=== PATIENT | female | born 1960 | race Hispanic/Latino ===

== ENCOUNTER 2017-08-09 00:33 | Emergency (ER) | payer BC ==
[2017-08-09 00:34] VITALS: BMI 28.3
[2017-08-09 01:02] VITALS: BP 126/81; PULSE 93; RESP 17; TEMP 98.3; O2SAT 98
[2017-08-09] MEDS ORDERED: TraMADol/Apap 37.5/325 mg Tab PO STA (01:13)
--- NOTE | 2017-08-09 01:27 | ED PDOC ---
Arrival/HPI - General Chief Complaint: Medical Clearance Time Seen by Provider: 08/09/17 00:46 Historian: Patient - History of Present Illness Narrative History of Present Illness (Text): 08/09/17 01:21 Codie Berman is a 56 year old female, whose past medical history includes mitral valve prolapse, Courtney throiditis, and fibromyalgia, presents to the emergency department complaining of neck pain for past few hours. States pain presented after she "jerked" her neck at [employer] while quickly turning her neck. States that pain radiates to the back of the head and to the lower back. Denies any fever, chills, dizziness, chest pain, shortness of breath, nausea, vomiting, diarrhea, or any other complaints at this time. Time/Duration: 4-6 hours Symptom Onset: Sudden Symptom Course: Unchanged Severity Level: Mild Activities at Onset: Light Past Medical History - Provider Review Nursing Documentation Reviewed: Yes - Infectious Disease Hx of Infectious Diseases: None - Tetanus Immunization Tetanus Immunization: Unknown - Reproductive Menopause: Yes - Cardiac Hx Pacemaker: No - Neurological Hx Paralysis: No Other/Comment: Neck Injury - Endocrine/Metabolic Hx Endocrine Disorders: Yes (Hashimotos Thyroiditis) Hx Hypothyroidism: Yes - Hematological/Oncological Hx Blood Transfusions: No Hx Blood Transfusion Reaction: No - Musculoskeletal/Rheumatological Hx Musculoskeletal Disorders: No - Psychiatric Hx Depression: No Hx Emotional Abuse: No Hx Physical Abuse: No Hx Substance Use: No - Past Surgical History Past Surgical History: No Previous - Surgical History Hx Section: Yes - Anesthesia Hx Anesthesia Reactions: Yes (WOKE UP DURING ENDOSCOPY) - Suicidal Assessment Feels Threatened In Home Enviroment: No Family/Social History Family/Social History: No Known Family HX Smoking Status: Never Smoked Hx Alcohol Use: Yes (SOCIAL) Frequency of alcohol use: Socially Hx Substance Use: No Hx Substance Use Treatment: No Allergies/Home Meds Allergies/Adverse Reactions: Allergies crab Allergy (Verified 08/31/16 18:09) ANAPHYLAXIS levothyroxine sodium [From Levoxyl] Allergy (Verified 09/01/16 02:35) ANAPHYLAXIS shrimp Allergy (Verified 08/31/16 18:09) ANAPHYLAXIS Sulfa (Sulfonamide Antibiotics) Allergy (Verified 09/01/16 02:35) ANAPHYLAXIS Iodine and Iodide Containing Produc Adverse Reaction (Verified 08/31/16 18:09) ANAPHYLAXIS IVP DYE Allergy (Uncoded 12/16/16 11:30) RASH Home Medications: Home Meds Medication Instructions Recorded Confirmed Aspirin [Ecotrin] 81 mg PO DAILY 07/12/16 08/09/17 Ascorbic Acid [Vitamin C] 1,000 mg PO DAILY 12/16/16 08/09/17 Ibuprofen [Motrin Tab] 800 mg PO PRN PRN 12/16/16 08/09/17 Inositol 500 mg PO DAILY 12/16/16 08/09/17 Lactobacillus Combination No.8 1 each PO DAILY 12/16/16 08/09/17 [Adult Probiotic] Latanoprost 0.005% Opht [Xalatan 1 drop OU HS 12/16/16 08/09/17 Opht] [id number] Ethyl Esters [OMEGA 3] 500 mg PO DAILY 12/16/16 08/09/17 Review of Systems - Physician Review All systems were reviewed & negative as marked: Yes - Review of Systems Constitutional: Normal. absent: Fatigue, Fevers Respiratory: Normal. absent: SOB, Cough, Sputum Cardiovascular: Normal. absent: Chest Pain, Palpitations Gastrointestinal: Normal. absent: Abdominal Pain, Diarrhea, Nausea, Vomiting Musculoskeletal: Back Pain, Neck Pain (neck pain radiating to the back ) Neurological: Headache Physical Exam Vital Signs Reviewed: Yes Vital Signs Temp Pulse Resp BP Pulse Ox 08/09/17 00:56 98.3 F 93 H 17 126/81 98 Temperature: Afebrile Blood Pressure: Normal Pulse: Regular Respiratory Rate: Normal Appearance: Positive for: Well-Appearing, Non-Toxic, Comfortable Pain Distress: None Mental Status: Positive for: Alert and Oriented X 3 - Systems Exam Head: Present: Atraumatic, Normocephalic Pupils: Present: PERRL Conjunctiva: Present: Normal Mouth: Present: Moist Mucous Membranes Neck: Present: Normal Range of Motion, Other (MILD PARASPINAL SPASM). No: MIDLINE TENDERNESS, Paraspinal Tenderness Respiratory/Chest: Present: Clear to Auscultation, Good Air Exchange. No: Respiratory Distress, Accessory Muscle Use Cardiovascular: Present: Regular Rate and Rhythm, Normal S1, S2. No: Murmurs Abdomen: Present: Normal Bowel Sounds. No: Tenderness, Distention, Peritoneal Signs Back: Present: Normal Inspection Upper Extremity: Present: Normal Inspection. No: Cyanosis, Edema Lower Extremity: Present: Normal Inspection. No: Edema Neurological: Present: GCS=15, CN II-XII Intact, Speech Normal, Motor Func Grossly Intact, Normal Sensory Function Skin: Present: Warm, Dry, Normal Color. No: Rashes Psychiatric: Present: Alert, Oriented x 3, Normal Insight, Normal Concentration Medical Decision Making ED Course and Treatment: 08/09/17 01:29 Impression: A 56 year old female who presents to the emergency department complaining of neck pain for past few hours. Plan: -- Ultracet -- Valium -- X-Ray cervical spine -- Reassess and disposition Progress Notes: 08/09/17 03:07 Cervical Spine X-ray shows no acute process. States symptoms have improved post treatment. Patient is stable for discharge. Advised to follow up with PMD within few days and present to the emergency department for new/worsening symptoms. - Lab Interpretations I have reviewed the lab results: Yes - RAD Interpretation Radiology Orders: 08/09/17 01:11 CERVICAL SPINE >18YR W/OBLIQUE [RAD] Stat - Medication Orders Current Medication Orders: Discontinued Medications Diazepam (Valium) 5 mg PO ONCE ONE Stop: 08/09/17 01:14 Last Admin: 08/09/17 01:31 Dose: 5 mg Tramadol/Acetaminophen (Ultracet 37.5/325 Mg) 1 tab PO ONCE STA Stop: 08/09/17 01:14 Last Admin: 08/09/17 01:31 Dose: 1 tab - Scribe Statement The provider has reviewed the documentation as recorded by the Scribe Mayra Ray Provider Attestation: Mayra Ray Provider Scribe Attestation: All medical record entries made by the Scribe were at my direction and personally dictated by me. I have reviewed the chart and agree that the record accurately reflects my personal performance of the history, physical exam, medical decision making, and the department course for this patient. I have also personally directed, reviewed, and agree with the discharge instructions and disposition. Disposition/Present on Arrival - Present on Arrival Any Indicators Present on Arrival: No History of DVT/PE: No History of Uncontrolled Diabetes: No Urinary Catheter: No History of Decub. Ulcer: No History Surgical Site Infection Following: None - Disposition Have Diagnosis and Disposition been Completed?: Yes Diagnosis: Cervical strain, Neck muscle spasm Disposition: HOME/ ROUTINE Disposition Time: 02:58 Patient Plan: Discharge Condition: GOOD Discharge Instructions (ExitCare): Cervical Strain (DC), Muscle Spasm (ED) Additional Instructions: Rest/no strenuous activity/take meds as prescribed/follow up with your doctor this week Prescriptions: oxyCODONE/Acetaminophen [Percocet 5/325 mg Tab] 1 ea PO Q6 PRN #12 tab PRN Reason: Pain, Moderate (4-7) Diazepam [Valium] 2 mg PO TID PRN #12 tablet PRN Reason: Muscle Spasm Referrals: Ignacio Alanis MD [Primary Care Provider] - Follow up with primary Forms: [employer] (Belizean)
--- NOTE | 2017-08-09 08:36 | RAD ---
PROCEDURE: Cervical Spine Radiographs. HISTORY: Pain. COMPARISON: None. FINDINGS: BONES: Alignment maintained. No fracture. Dens Intact. DISC SPACES: There is disc degeneration at C5-6 SOFT TISSUES: Normal. No prevertebral soft tissue swelling. OTHER FINDINGS: None. IMPRESSION: Disc degeneration at C5-6. No acute findings
== END 2017-08-09 03:15 | disposition home or self-care (01) ==
LOC: ED 00:33
DX: S16.1XXA Strain of muscle, fascia and tendon at neck level, initial encounter (principal); X50.0XXA Overexertion from strenuous movement or load, initial encounter; Y93.89 Activity, other specified; Y92.512 Supermarket, store or market as the place of occurrence of the external cause

== ENCOUNTER 2018-02-08 16:22 | Emergency (ER) | payer BC ==
[2018-02-08 16:29] VITALS: BMI 23.0
[2018-02-08 16:39] VITALS: BP 135/87; PULSE 79; RESP 18; TEMP 97.7; O2SAT 99
--- NOTE | 2018-02-08 16:59 | ED PDOC ---
Arrival/HPI - General Chief Complaint: Finger,Hand,&Wrist Time Seen by Provider: 02/08/18 16:56 Historian: Patient - History of Present Illness Narrative History of Present Illness (Text): 02/08/18 16:57 This 57 yo female presents to this ED c/o left hand pain x 2 days. Patient stated a cantaloupe fell on her hand a local [employer]. Denies other complains. Time/Duration: Other (2 days) Quality: Aching Context: Other (supermarket) Past Medical History - Provider Review Nursing Documentation Reviewed: Yes - Infectious Disease Hx of Infectious Diseases: None - Tetanus Immunization Tetanus Immunization: Unknown - Cardiac Hx Pacemaker: No - Neurological Hx Paralysis: No Other/Comment: Neck Injury - Endocrine/Metabolic Hx Endocrine Disorders: Yes (Hashimotos Thyroiditis) Hx Hypothyroidism: Yes - Hematological/Oncological Hx Blood Transfusions: No Hx Blood Transfusion Reaction: No - Musculoskeletal/Rheumatological Hx Musculoskeletal Disorders: No - Psychiatric Hx Depression: No Hx Emotional Abuse: No Hx Physical Abuse: No Hx Substance Use: No - Past Surgical History Past Surgical History: No Previous - Surgical History Hx Section: Yes - Anesthesia Hx Anesthesia Reactions: Yes (WOKE UP DURING ENDOSCOPY) - Suicidal Assessment Feels Threatened In Home Enviroment: No Family/Social History - Physician Review Nursing Documentation Reviewed: Yes Family/Social History: Other (noncontributory) Smoking Status: Never Smoked Hx Alcohol Use: Yes (SOCIAL) Frequency of alcohol use: Socially Hx Substance Use: No Hx Substance Use Treatment: No Allergies/Home Meds Allergies/Adverse Reactions: Allergies crab Allergy (Verified 08/31/16 18:09) ANAPHYLAXIS levothyroxine sodium [From Levoxyl] Allergy (Verified 09/01/16 02:35) ANAPHYLAXIS shrimp Allergy (Verified 08/31/16 18:09) ANAPHYLAXIS Sulfa (Sulfonamide Antibiotics) Allergy (Verified 09/01/16 02:35) ANAPHYLAXIS Iodine and Iodide Containing Produc Adverse Reaction (Verified 08/31/16 18:09) ANAPHYLAXIS IVP DYE Allergy (Uncoded 12/16/16 11:30) RASH Home Medications: Home Meds Medication Instructions Recorded Confirmed Aspirin [Ecotrin] 81 mg PO DAILY 07/12/16 02/08/18 Ibuprofen [Motrin Tab] 800 mg PO PRN PRN 12/16/16 02/08/18 Review of Systems - Review of Systems Constitutional: Normal. absent: Fatigue, Weight Change, Fevers Eyes: Normal ENT: Normal Respiratory: Normal Cardiovascular: Normal Gastrointestinal: Normal Genitourinary Female: Normal Musculoskeletal: Other (left hand pain) Skin: Normal Neurological: Normal Endocrine: Normal Hemo/Lymphatic: Normal Psychiatric: Normal Physical Exam Vital Signs Temp Pulse Resp BP Pulse Ox 02/08/18 16:34 97.7 F 79 18 135/87 99 Temperature: Afebrile Blood Pressure: Normal Pulse: Regular Respiratory Rate: Normal Appearance: Positive for: Well-Appearing, Non-Toxic, Comfortable Pain Distress: None Mental Status: Positive for: Alert and Oriented X 3 - Systems Exam Head: Present: Atraumatic, Normocephalic Mouth: Present: Moist Mucous Membranes Neck: Present: Normal Range of Motion Upper Extremity: Present: Normal Inspection, Normal ROM, NORMAL PULSES, Tenderness (mild tenderness at left proximal 5th finger, and distal left 5th metacarpal area. No erythema, ecchymosis, swelling or deformity.), Neurovascularly Intact, Capillary Refill < 2s. No: Cyanosis, Edema, Swelling, Erythema, Temperature Abnormalties, Deformity Lower Extremity: Present: Normal Inspection, Normal ROM Neurological: Present: GCS=15, CN II-XII Intact, Speech Normal Skin: Present: Warm, Dry, Normal Color. No: Rashes Psychiatric: Present: Alert, Oriented x 3, Normal Insight, Normal Concentration Medical Decision Making ED Course and Treatment: 02/08/18 18:37 Re-evaluation. Patient feels better. Discussed results and plan with patient who expresses understanding. All questions answered and there is agreement with the plan to discharge home with instructions. Patient stable for discharge. Return if symptoms persist or worsen. Re-evaluation Time: 18:37 Reassessment Condition: Re-examined, Improved - RAD Interpretation Narrative RAD Interpretations (Text): 02/08/18 18:37 Hand x-rays: No Fx Radiology Orders: 02/08/18 17:00 HAND LEFT 3 VIEWS ROUTINE [RAD] Stat - Medication Orders Current Medication Orders: Discontinued Medications Ibuprofen (Motrin Tab) 600 mg PO STAT STA Stop: 02/08/18 17:01 Last Admin: 02/08/18 17:25 Dose: 600 mg MAR Pain/Vitals Document 02/08/18 17:25 EQ (Rec: 02/08/18 17:25 EQ [id number]) Pain Reassessment Is This A Pain ReAssessment? No Sleep Is patient sleeping during reassessment? No Presence of Pain Presence of Pain Yes - Procedure PROCEDURE NOTE (Text): 02/08/18 18:38 Jamar bandage and sling were recommended. Patient is aware about the risk of severe head injury from falling while wearing arm sling, or driving while wearing sling. Disposition/Present on Arrival - Present on Arrival Any Indicators Present on Arrival: No History of DVT/PE: No History of Uncontrolled Diabetes: No Urinary Catheter: No History of Decub. Ulcer: No History Surgical Site Infection Following: None - Disposition Have Diagnosis and Disposition been Completed?: Yes Diagnosis: Hand pain, left Disposition: HOME/ ROUTINE Disposition Time: 18:39 Patient Plan: Discharge Condition: IMPROVED Discharge Instructions (ExitCare): Hand Pain (DC) Additional Instructions: Call private doctor for follow up visit in 1-2 days. Take medication as instructed. Keep and elevated, ice, rest, jamar bandage, sling for at least 5 days. Return to emergency if symptoms worsen. Prescriptions: Famotidine [Pepcid] 40 mg PO DAILY #10 tablet Ibuprofen [Motrin] 600 mg PO Q8 PRN #20 tab PRN Reason: Pain, Severe (8-10) Referrals: Ignacio Alanis MD [Primary Care Provider] - Follow up with primary Forms: [facility] (Kiswahili), WORK NOTE
--- NOTE | 2018-02-09 08:33 | RAD ---
PROCEDURE: Left Hand Radiographs. HISTORY: pain COMPARISON: None. FINDINGS: BONES: Normal. No fracture. JOINTS: Normal. No osteoarthritic changes. SOFT TISSUES: Normal. OTHER FINDINGS: None. IMPRESSION: Normal left hand radiographs.
== END 2018-02-08 19:20 | disposition home or self-care (01) ==
LOC: ED 16:22
DX: M79.642 Pain in left hand (principal)

== ENCOUNTER 2018-03-26 02:57 | Emergency (ER) | payer BC ==
[2018-03-26 03:24] VITALS: BMI 23.6
[2018-03-26 03:35] VITALS: RESP 17; O2SAT 98
--- NOTE | 2018-03-26 03:40 | ED PDOC ---
Arrival/HPI - General Chief Complaint: Abdominal Pain Time Seen by Provider: 03/26/18 03:21 Historian: Patient - History of Present Illness Narrative History of Present Illness (Text): 03/26/18 03:39 57 year old, with past medical history of mitral valve prolapse, Courtney throiditis, and fibromyalgia, presents to the Emergency department complaining generalized abdominal discomfort since prior to arrival. Patient informs worsening pain bringing him to the Emergency department for evaluation. Patient informs mild nausea but denies any vomiting. Patient denies any fever, chills, diarrhea, changes in appetite, hematochezia, urinary output changes, chest pain , shortness of breath or any other complaints. Time/Duration: Prior to Arrival Symptom Onset: Gradual Symptom Course: Unchanged Quality: Aching Activities at Onset: Light Context: Home Past Medical History - Provider Review Nursing Documentation Reviewed: Yes - Infectious Disease Hx of Infectious Diseases: None - Tetanus Immunization Tetanus Immunization: Unknown - Cardiac Hx Pacemaker: No - Neurological Hx Paralysis: No Other/Comment: Neck Injury - Endocrine/Metabolic Hx Endocrine Disorders: Yes (Hashimotos Thyroiditis) Hx Hypothyroidism: Yes - Hematological/Oncological Hx Blood Transfusions: No Hx Blood Transfusion Reaction: No - Musculoskeletal/Rheumatological Hx Musculoskeletal Disorders: No - Psychiatric Hx Depression: No Hx Emotional Abuse: No Hx Physical Abuse: No Hx Substance Use: No - Past Surgical History Past Surgical History: No Previous - Surgical History Hx Section: Yes - Anesthesia Hx Anesthesia Reactions: Yes (WOKE UP DURING ENDOSCOPY) - Suicidal Assessment Feels Threatened In Home Enviroment: No Family/Social History - Physician Review Nursing Documentation Reviewed: Yes Family/Social History: No Known Family HX Smoking Status: Never Smoked Hx Alcohol Use: Yes (SOCIAL) Hx Substance Use: No Hx Substance Use Treatment: No Allergies/Home Meds Allergies/Adverse Reactions: Allergies crab Allergy (Verified 03/26/18 03:24) ANAPHYLAXIS levothyroxine sodium [From Levoxyl] Allergy (Verified 03/26/18 03:24) ANAPHYLAXIS shrimp Allergy (Verified 03/26/18 03:24) ANAPHYLAXIS Sulfa (Sulfonamide Antibiotics) Allergy (Verified 03/26/18 03:24) ANAPHYLAXIS Iodine and Iodide Containing Produc Adverse Reaction (Verified 03/26/18 03:24) ANAPHYLAXIS IVP DYE Allergy (Uncoded 03/26/18 03:24) RASH Home Medications: Home Meds Medication Instructions Recorded Confirmed Aspirin [Ecotrin] 81 mg PO DAILY 07/12/16 03/26/18 Ibuprofen [Motrin Tab] 800 mg PO PRN PRN 12/16/16 03/26/18 Review of Systems - Physician Review All systems were reviewed & negative as marked: Yes - Review of Systems Constitutional: Normal. absent: Fevers Eyes: Normal ENT: Normal Respiratory: Normal. absent: SOB Cardiovascular: Normal. absent: Chest Pain Gastrointestinal: Abdominal Pain, Nausea. absent: Diarrhea, Vomiting, Appetite Changes, Hematochezia Genitourinary Female: Normal. absent: Urine Output Changes Musculoskeletal: Normal Skin: Normal Neurological: Normal Endocrine: Normal Hemo/Lymphatic: Normal Psychiatric: Normal Physical Exam Vital Signs Reviewed: Yes Vital Signs Temp Pulse Resp BP Pulse Ox 03/26/18 06:36 98.2 F 78 17 128/72 98 03/26/18 06:05 78 17 128/72 98 03/26/18 03:34 97.3 F L 71 17 136/83 98 Temperature: Afebrile Blood Pressure: Normal Pulse: Regular Respiratory Rate: Normal Appearance: Positive for: Well-Appearing, Non-Toxic, Comfortable Pain Distress: None Mental Status: Positive for: Alert and Oriented X 3 - Systems Exam Head: Present: Atraumatic, Normocephalic Pupils: Present: PERRL Extroacular Muscles: Present: EOMI Conjunctiva: Present: Normal Respiratory/Chest: Present: Clear to Auscultation, Good Air Exchange. No: Respiratory Distress, Accessory Muscle Use Cardiovascular: Present: Regular Rate and Rhythm, Normal S1, S2. No: Murmurs Abdomen: Present: Normal Bowel Sounds. No: Tenderness, Distention, Peritoneal Signs, Rebound, Guarding, Mass/Organomegaly Upper Extremity: Present: Normal Inspection. No: Cyanosis, Edema Lower Extremity: Present: Normal Inspection. No: Edema Neurological: Present: GCS=15, CN II-XII Intact, Speech Normal Skin: Present: Warm, Dry, Normal Color. No: Rashes Psychiatric: Present: Alert, Oriented x 3, Normal Insight, Normal Concentration Medical Decision Making ED Course and Treatment: 03/26/18 03:50 Impression: 57 year old female presents to the Emergency department for abdominal pain. Plan: -- EKG -- Labs -- IV Fluids -- zofran -- Urinalysis -- Reassess and disposition Progress Notes: 03/26/18 04:11 EKG:Ordered, reviewed, and independently interpreted the EKG. Rate : 64 BPM Rhythm : NSR Interpretation : No ST-segment elevations or depressions, no T-wave inversions, normal intervals. - Lab Interpretations Lab Results: 03/26/18 04:08 03/26/18 04:08 Lab Results 03/26/18 04:08: Sodium 142, Potassium 3.9, Chloride 106, Carbon Dioxide 23, Anion Gap 17, BUN 19, Creatinine 0.6 L, Est GFR ( Amer) > 60, Est GFR ( Non-Af Amer) > 60, Random Glucose 75, Calcium 9.6, Total Bilirubin 0.4, AST 30, ALT 27, Alkaline Phosphatase 71, Lactate Dehydrogenase 594, Total Creatine Kinase 141, Troponin I < 0.01, Total Protein 7.8, Albumin 4.5, Globulin 3.4, Albumin/Globulin Ratio 1.3, Amylase 132 H, Lipase 119 03/26/18 04:08: Urine Color Yellow, Urine Appearance Clear, Urine pH 6.0, Ur Specific [place] 1.025, Urine Protein Negative, Urine Glucose (UA) Negative, Urine Ketones Negative, Urine Blood Small H, Urine Nitrate Negative, Urine Bilirubin Negative, Urine Urobilinogen 0.2, Ur Leukocyte Esterase Negative, Urine RBC 10 - 15, Urine WBC 5 - 10, Ur Epithelial Cells 3 - 4 03/26/18 04:08: PT 10.9, INR 0.95, APTT 29.5 03/26/18 04:08: WBC 7.8 D, RBC 4.27, Hgb 13.4, Hct 38.6, MCV 90.4, MCH 31.4, MCHC 34.7, RDW 12.6, Plt Count 253, MPV 10.0, Gran % 44.0 L, Lymph % (Auto) 46.2 H, [place] % (Auto) 6.1 H, Eos % (Auto) 3.6, Baso % (Auto) 0.1, Gran # 3.45, Lymph # (Auto) 3.6 H, [place] # (Auto) 0.5, Eos # (Auto) 0.3, Baso # (Auto) 0.01 - RAD Interpretation Radiology Orders: 03/26/18 04:45 ABD & PELVIS W/O PO OR IV CONT [CT] Stat - EKG Interpretation Interpreted by ED Physician: Yes Type: 12 lead EKG - Medication Orders Current Medication Orders: Discontinued Medications Cephalexin Monohydrate (Keflex) 500 mg PO STAT STA PRN Reason: Protocol Stop: 03/26/18 06:26 Last Admin: 03/26/18 06:38 Dose: 500 mg Sodium Chloride (Sodium Chloride 0.9%) 1,000 mls @ 100 mls/hr IV .Q10H STA Stop: 03/26/18 13:42 Last Admin: 03/26/18 04:26 Dose: 100 mls/hr eMAR Start Stop Document 03/26/18 04:26 IT (Rec: 03/26/18 04:26 IT [id number]) Intravenous Solution Start Date 03/26/18 Start Time 04: End Date 03/26/18 Ondansetron HCl (Zofran Inj) 4 mg IVP STAT STA Stop: 03/26/18 03:44 Last Admin: 03/26/18 04:25 Dose: 4 mg IVP Administration Document 03/26/18 04:25 IT (Rec: 03/26/18 04:25 IT [id number]) Charges for Administration # of IVP Administrations 1 - Scribe Statement The provider has reviewed the documentation as recorded by the Scribe Skye Henderson. All medical record entries made by the Scribe were at my direction and personally dictated by me. I have reviewed the chart and agree that the record accurately reflects my personal performance of the history, physical exam, medical decision making, and the department course for this patient. I have also personally directed, reviewed, and agree with the discharge instructions and disposition. Disposition/Present on Arrival - Present on Arrival Any Indicators Present on Arrival: No History of DVT/PE: No History of Uncontrolled Diabetes: No Urinary Catheter: No History of Decub. Ulcer: No History Surgical Site Infection Following: None - Disposition Have Diagnosis and Disposition been Completed?: Yes Diagnosis: Urinary tract infection, Abdominal pain Disposition: HOME/ ROUTINE Disposition Time: 06:25 Condition: GOOD Discharge Instructions (ExitCare): Urinary Tract Infection, Adult (DC), Acute Abdomen (Belly Pain), Adult (DC) Prescriptions: Cephalexin [Keflex] 500 mg PO BID #14 capsule Referrals: PCP,NO [Primary Care Provider] - Follow up with primary Forms: [employer] (Welsh)
[2018-03-26] MEDS ORDERED: Sodium Chloride 0.9% 1,000 ML IV STA (03:43)
[2018-03-26 04:40] LABS: BASO # 0.01 K/mm3 (0.0-2.0); BASO % 0.1 % (0.0-3.0); EOS # 0.3 (0.0-0.7); EOS % 3.6 % (1.5-5.0); GRAN # 3.45 (1.4-6.5); HEMOGLOBIN 13.4 g/dL (12.0-16.0); LYMPH # 3.6 (1.2-3.4); LYMPH % 46.2 % (22.0-35.0); MEAN CELL VOLUME 90.4 fl (80.0-105.0); MEAN CORPUSCULAR HEMOGLOBIN 31.4 pg (25.0-35.0); MEAN CORPUSCULAR HGB CONC 34.7 g/dl (31.0-37.0); MONO # 0.5 (0.1-0.6); MONO % 6.1 % (1.0-6.0); RBC 4.27 10^6/uL (3.5-6.1); RED CELL DISTRIBUTION WIDTH 12.6 % (11.5-14.5); URINE BILIRUBIN NEGATIVE (NEGATIVE); URINE BLOOD SMALL (NEGATIVE); URINE GLUCOSE (UA) NEGATIVE (NEGATIVE); URINE LEUKOCYTE ESTERASE NEGATIVE Leu/uL (NEGATIVE); URINE PROTEIN NEGATIVE mg/dL (<30 mg/dL); URINE UROBILINOGEN 0.2 E.U./dL (<1 E.U./dL); WHITE BLOOD COUNT 7.8 10^3/ul (4.5-11.0)
[2018-03-26 04:44] LABS: URINE APPEARANCE CLEAR (CLEAR); URINE COLOR YELLOW (YELLOW)
[2018-03-26 04:46] LABS: ALB/GLOB RATIO 1.3 (1.1-1.8); ALBUMIN 4.5 g/dL (3.0-4.8); ALT/SGPT 27 U/L (7-56); AMYLASE 132 U/L (35-125); AST/SGOT 30 U/L (14-36); BLOOD UREA NITROGEN 19 mg/dL (7-21); CALCIUM 9.6 mg/dL (8.4-10.5); GFR AFRICAN-AMERICAN > 60; GFR NON-AFRICAN AMERICAN > 60; INR 0.95 (0.93-1.08); LIPASE 119 U/L (23-300); PARTIAL THROMBOPLASTIN TIME 29.5 Seconds (25.1-36.5); PROTHROMBIN TIME 10.9 SECONDS (9.4-12.5)
[2018-03-26 04:57] LABS: TROPONIN I < 0.01 ng/mL
[2018-03-26 06:05] VITALS: BP 128/72; PULSE 78
--- NOTE | 2018-03-26 06:10 | CT ---
EXAM: CT Abdomen and Pelvis Without Intravenous Contrast CLINICAL HISTORY: 57 years old, female; Pain; Abdominal pain; Flank; Left; Prior surgery; Surgery type: ; Additional info: Left flank pain TECHNIQUE: Axial computed tomography images of the abdomen and pelvis without intravenous contrast. All CT scans at this facility use one or more dose reduction techniques, viz.: automated exposure control; ma/kV adjustment per patient size (including targeted exams where dose is matched to indication; i.e. head); or iterative reconstruction technique. Coronal and sagittal reformatted images were created and reviewed. COMPARISON: No relevant prior studies available. FINDINGS: Limitations: Lack of intravenous contrast. Lung bases: Minimal atelectasis/scarring. ABDOMEN: Liver: Unremarkable. Gallbladder and bile ducts: No calcified stones. No ductal dilation. Pancreas: Unremarkable. No ductal dilation. Spleen: No splenomegaly. Adrenals: No mass. Kidneys and ureters: No renal calculi. No hydronephrosis. Stomach and bowel: No definite mural thickening. No obstruction. PELVIS: Appendix: Normal caliber. No inflammation. Residual contrast within lumen. Bladder: Mildly distended bladder. No stones. Reproductive: Unremarkable as visualized. ABDOMEN and PELVIS: Intraperitoneal space: No significant fluid collection. No free air. Bones/joints: Moderate degenerative disc disease within lower lumbar spine. Mild degenerative disc disease within upper lumbar spine. Probable bone island. No acute fracture. Soft tissues: Tiny umbilical hernia containing fat. Vasculature: Few rounded calcifications within pelvis, likely phleboliths. No aneurysm. Lymph nodes: No pathologically enlarged lymph nodes. IMPRESSION: 1. No definite CT evidence of urolithiasis. 2. Incidental/non-acute findings are described above.
[2018-03-26 06:37] VITALS: TEMP 98.2
--- NOTE | 2018-03-26 22:44 | CARD ---
APPROVED REPORT EKG Measurement Heart [id number] <Conclusion> Normal sinus rhythm Normal ECG
== END 2018-03-26 06:37 | disposition home or self-care (01) ==
LOC: ED 02:57
DX: N39.0 Urinary tract infection, site not specified (principal); R10.9 Unspecified abdominal pain; M79.7 Fibromyalgia
CPT/HCPCS: 74176; 80053; 81001; 82150; 82550; 83615; 83690; 84484; 85025; 85610; 85730; 87086; 93005; 96374; 99284; J2405; J7040

== ENCOUNTER 2018-05-24 01:08 | Emergency (ER) | payer BC ==
[2018-05-24 01:08] VITALS: BMI 23.6
[2018-05-24 01:41] VITALS: TEMP 98
[2018-05-24] MEDS ORDERED: Oxycodone/Acetaminophen 5/325 mg Tab PO STA (02:01)
--- NOTE | 2018-05-24 02:03 | ED PDOC ---
Arrival/HPI - General Chief Complaint: Burn Time Seen by Provider: 05/24/18 01:52 Historian: Patient - History of Present Illness Narrative History of Present Illness (Text): 05/24/18 02:01 57 year old female, with past medical history of mitral valve prolapse, Courtney throiditis, and fibromyalgia, presents to the Emergency department for evaluation of superficial burn to surface of her left palm prior to arrival. Patient states she was washing her hand at a restaurant when hot water from faucet splashed onto her hand sustaining burn to her left palm. Patient denies any other injury. Patient denies any fever, chills, nausea, vomiting, diarrhea, abdominal pain, chest pain, shortness of breath or any other complaints. Patient presents to the Emergency department for medical evaluation. Time/Duration: Prior to Arrival Symptom Onset: Gradual Symptom Course: Improving Quality: Burning Activities at Onset: Light Context: Other (Restaurant washroom) Past Medical History - Provider Review Nursing Documentation Reviewed: Yes - Infectious Disease Hx of Infectious Diseases: None - Tetanus Immunization Tetanus Immunization: Unknown - Reproductive Menopause: Yes - Cardiac Hx Pacemaker: No - Neurological Hx Paralysis: No Other/Comment: Neck Injury - Endocrine/Metabolic Hx Endocrine Disorders: Yes ([place] Thyroiditis) Hx Hypothyroidism: Yes - Hematological/Oncological Hx Blood Transfusions: No Hx Blood Transfusion Reaction: No - Musculoskeletal/Rheumatological Hx Musculoskeletal Disorders: No - Psychiatric Hx Depression: No Hx Emotional Abuse: No Hx Physical Abuse: No Hx Substance Use: No - Past Surgical History Past Surgical History: No Previous - Surgical History Hx Section: Yes - Anesthesia Hx Anesthesia Reactions: Yes (WOKE UP DURING ENDOSCOPY) - Suicidal Assessment Feels Threatened In Home Enviroment: No Family/Social History - Physician Review Nursing Documentation Reviewed: Yes Family/Social History: No Known Family HX Smoking Status: Never Smoked Hx Alcohol Use: Yes (SOCIAL) Hx Substance Use: No Hx Substance Use Treatment: No Allergies/Home Meds Allergies/Adverse Reactions: Allergies crab Allergy (Verified 05/24/18 01:28) ANAPHYLAXIS levothyroxine sodium [From Levoxyl] Allergy (Verified 05/24/18 01:28) ANAPHYLAXIS shrimp Allergy (Verified 05/24/18 01:28) ANAPHYLAXIS Sulfa (Sulfonamide Antibiotics) Allergy (Verified 05/24/18 01:28) ANAPHYLAXIS Iodine and Iodide Containing Produc Adverse Reaction (Verified 05/24/18 01:28) ANAPHYLAXIS IVP DYE Allergy (Uncoded 05/24/18 01:28) RASH Review of Systems - Physician Review All systems were reviewed & negative as marked: Yes - Review of Systems Constitutional: Normal. absent: Fevers Eyes: Normal ENT: Normal Respiratory: Normal. absent: SOB Cardiovascular: Normal. absent: Chest Pain Gastrointestinal: Normal. absent: Abdominal Pain, Diarrhea, Nausea, Vomiting Genitourinary Female: Normal Musculoskeletal: Normal Skin: Other (Superficial burn to left palm) Neurological: Normal Endocrine: Normal Hemo/Lymphatic: Normal Psychiatric: Normal Physical Exam Vital Signs Reviewed: Yes Vital Signs Temp Pulse Resp BP Pulse Ox 05/24/18 01:40 98 F 101 H 20 130/73 98 Temperature: Afebrile Blood Pressure: Normal Pulse: Tachycardic Respiratory Rate: Normal Appearance: Positive for: Well-Appearing, Non-Toxic, Comfortable Pain Distress: None Mental Status: Positive for: Alert and Oriented X 3 - Systems Exam Head: Present: Atraumatic, Normocephalic Pupils: Present: PERRL Extroacular Muscles: Present: EOMI Conjunctiva: Present: Normal Mouth: Present: Moist Mucous Membranes Neck: Present: Normal Range of Motion Respiratory/Chest: Present: Clear to Auscultation, Good Air Exchange. No: Respiratory Distress, Accessory Muscle Use Cardiovascular: Present: Regular Rate and Rhythm, Normal S1, S2. No: Murmurs Abdomen: No: Tenderness, Distention, Peritoneal Signs Back: Present: Normal Inspection Upper Extremity: Present: Normal ROM, NORMAL PULSES, Neurovascularly Intact, Other (Superficial 1st degree burn scattered to the surface of left palm. No blistering or formation of 2nd degree burn. ). No: Cyanosis, Edema Lower Extremity: Present: Normal Inspection. No: Edema Neurological: Present: GCS=15, CN II-XII Intact, Speech Normal Skin: Present: Warm, Dry, Normal Color. No: Rashes Psychiatric: Present: Alert, Oriented x 3, Normal Insight, Normal Concentration Medical Decision Making ED Course and Treatment: 05/24/18 02:19 Impression: 57 year old female presents to the Emergency department for superficial burn to her left palm. Plan: -- Motrin -- Silvadene -- percocet -- Reassess and disposition Prior Visits: Notes and results from previous visits were reviewed. Progress Notes: - Medication Orders Current Medication Orders: Discontinued Medications Ibuprofen (Motrin Tab) 600 mg PO STAT STA Stop: 05/24/18 02:01 Last Admin: 05/24/18 02:18 Dose: 600 mg MAR Pain/Vitals Document 05/24/18 02:18 (Rec: 05/24/18 02:19 [id number]) Pain Reassessment Is This A Pain ReAssessment? Yes Presence of Pain Presence of Pain Yes Pain Scale Used Pain Scale Used Numeric Location Left, Right or Bilateral Left Pain Location Body Site Hand Description Burning Intensity 5 Scale Used Numeric Pain Behavior Grasping Site Oxycodone/Acetaminophen (Percocet 5/325 Mg Tab) 1 tab PO STAT STA Stop: 05/24/18 02:02 Last Admin: 05/24/18 02:19 Dose: 1 tab MAR Pain Assessment Document 05/24/18 02:19 RG (Rec: 05/24/18 02:20 [id number]) Pain Reassessment Is this a pain reassessment? Yes Pain Scale Used Pain Scale Used Numeric Location Left, Right or Bilateral Left Pain Location Body Site Hand Description Description Burning Intensity of Pain at present 5 Silver Sulfadiazine (Silvadene 1% 25 Gm) 0 gm TP STAT STA Stop: 05/24/18 02:15 - Scribe Statement The provider has reviewed the documentation as recorded by the Scribe Skye Henderson. All medical record entries made by the Scribe were at my direction and personally dictated by me. I have reviewed the chart and agree that the record accurately reflects my personal performance of the history, physical exam, medical decision making, and the department course for this patient. I have also personally directed, reviewed, and agree with the discharge instructions and disposition. Disposition/Present on Arrival - Present on Arrival Any Indicators Present on Arrival: No History of DVT/PE: No History of Uncontrolled Diabetes: No Urinary Catheter: No History of Decub. Ulcer: No History Surgical Site Infection Following: None - Disposition Have Diagnosis and Disposition been Completed?: Yes Diagnosis: Superficial burn of hand Disposition: HOME/ ROUTINE Disposition Time: 02:04 Patient Plan: Discharge Patient Problems: Current Active Problems Problem Status Onset Superficial burn of hand Acute Condition: GOOD Discharge Instructions (ExitCare): Skin Lal (DC) Additional Instructions: Take meds as prescribed/apply cream as prescribed/follow up with your doctor as needed Prescriptions: Ibuprofen [Motrin] 600 mg PO Q6 PRN #12 tab PRN Reason: Pain, Moderate (4-7) Silver Sulfadiazine 1% [Silver Sulfadiazine] 1 appl TP DAILY #1 jar Forms: [employer] (I[place]ic)
[2018-05-24] MEDS ORDERED: Silver Sulfadiazine 1% Cream (25 gm) TP STA (02:14)
[2018-05-24 02:34] VITALS: BP 128/69; PULSE 87; RESP 18; O2SAT 96
== END 2018-05-24 02:34 | disposition home or self-care (01) ==
LOC: ED 01:08
DX: T23.152A Burn of first degree of left palm, initial encounter (principal); X11.8XXA Contact with other hot tap-water, initial encounter; Y92.511 Restaurant or cafe as the place of occurrence of the external cause; M79.7 Fibromyalgia